=== PATIENT | male | born 1990 | race Caucasian/White ===

== ENCOUNTER → 2022-01-18 | Outpatient (CLI) | payer OTHER ==
--- NOTE | 2022-01-18 08:16 | RAD ---
INDICATION: Reason: ABD PAIN AFTER DRINKING ALCOHOL / Spl. Instructions: / History: COMPARISON: None. TECHNIQUE: Grayscale and color ultrasound images obtained through the abdomen. FINDINGS: Pancreas: Not well seen secondary to overlying bowel gas. Liver: Echogenic Gallbladder: Partially contracted. Definite stones not seen with some limitation secondary to overlyi ng structures obscuring. Common Bile Duct: Not dilated. Right Kidney: No hydronephrosis. Left Kidney: No hydronephrosis. The kidneys are mildly enlarged. Spleen: Enlarged measuring 15 cm Aorta/IVC: Not well seen IMPRESSION: * Liver is echogenic. Nonspecific but can be seen with fatty infiltration. * Gallbladder is contracted. There is a suspected 5 mm adherent stone versus polyp. Electronically signed by: Anibal Betts MD (01/18/2022 8:14 AM) [id number]
== END ==
LOC: US 06:48
PROVIDERS: ATTEND Family Medicine
DX: R16.1 Splenomegaly, not elsewhere classified (principal); N28.81 Hypertrophy of kidney; K82.0 Obstruction of gallbladder
CPT/HCPCS: 76700